=== PATIENT | female | born 1980 | race Caucasian/White ===

== ENCOUNTER 2016-03-19 07:51 | Emergency (ER) | payer MEDICAID ==
[~2016-03-19] VITALS: Ht 167.6 cm; Wt 60.0 kg
[~2016-03-19 07:51] MED LIST: KLOR20TA6 PO; NAPR500 PO
[2016-03-19 07:52] VITALS: BP 134/85; PULSE 116; RESP 17; TEMP 97.8; O2SAT 97
[2016-03-19] MEDS ORDERED: predniSONE 20 MG TAB PO ONE (08:15)
--- NOTE | 2016-03-19 08:15 | PD ---
HPI Chief Complaint: ENT Complaint Time Seen by Provider: 08:10 Travel History International Travel<30 days: No Contact w/Intl Traveler<30days: No Traveled to known affect area: No History of Present Illness HPI Patient is a 35-year-old female presenting with chief complaint of "I have a head cold". She states she has had nasal congestion, postnasal drip, sore throat, cough and hoarseness along with bilateral ear pain for 4 days. She has used Mucinex DM with little relief. Cough is mostly dry and worse at night. Occasional thin green sputum production when lying flat. She denies any otorrhea, globus sensation, inability to swallow or clear secretions. She denies fever, headache and myalgias. She denies chest pain, dyspnea and wheezing. She denies any abdominal pain, nausea, vomiting and diarrhea. She states she has not ate as much due to discomfort with swallowing but has been drinking fluids normally. She is a smoker and occasional ethanol drinker, denies history of asthma or COPD. PFS Past Medical History Anemia: Yes Cerebrovascular Accident: Yes (when she was 18 "mini stroke") Immunizations Current: Yes ?: Not Social History Alcohol Use: Yes (weekly) Tobacco Use: Yes (PPD) Substance Use: No Allergies-Medications (Allergen,Severity, Reaction): Uncoded Allergies: ORTHO TRI-CYCLEN (Allergy, Severe, SYNCOPE, 01/07/15) PT STATES "PASSED OUT AND HAD MINI STROKE". Reported Meds & Prescriptions Reported Meds & Active Scripts Active Magic Mouthwash Pediatric/Adult Liq (Lidocaine/Diphenhydr/Alum/Mg/Simeth) 60 Ml Susp 5-10 Ml SWISH-SPIT ACHS PRN Please makes 40 mL each: 2% viscous lidocaine, liquid diphenhydramine and Maalox liquid Tessalon Perles (Benzonatate) 100 Mg Cap 100-200 Mg PO TID PRN Prednisone 20 Mg Tab 20 Mg PO DAILY 5 Days Review of Systems Except as stated in HPI: all other systems reviewed are Neg Physical Exam Narrative GENERAL: Well-developed and well-nourished adult female in no acute distress. SKIN: Warm and dry. Good turgor without tenting. HEAD: Normocephalic and atraumatic. EYES: PERRL bilaterally, 5mm. EOMI bilaterally. No injection or icterus present. No proptosis. Lids without edema or erythema. ENT: Bilateral ear canals are non-edematous/non-erythematous without otorrhea. Bilateral TMs are dull but with intact landmarks and without distortion, perforation, air-fluid level or erythema. Nasal mucosa erythematous and edematous with clear and yellow discharge, septum intact and midline. Buccal mucosa pink and moist. On the soft and hard palate there are small aphthous ulcers and there is some erythema of the anterior tonsillar pilar's without tonsillar hypertrophy, masses, swelling, asymmetry and exudates. Uvula midline and airway patent. NECK: Supple, no meningeal signs. Trachea midline, no JVD. No cervical or facial lymphadenopathy. CARDIOVASCULAR: Regular rate and rhythm without murmurs, rubs, clicks or gallops. Radial and posterior tibial pulses 2+ bilaterally. No pedal edema. Negative bilateral Homans sign. RESPIRATORY: Clear to auscultation bilaterally with symmetrical rise and fall, no distress or use of accessory muscles. Speaks in full sentences. No stridor , tripoding or drooling. GASTROINTESTINAL: Non-tender, non-distended. Normal bowel sounds all 4 quadrants. No masses or organomegaly present. MUSCULOSKELETAL: No gait disturbances. Patient freely moving all four extremities spontaneously. Extremities without clubbing, cyanosis, or edema. No obvious deformities. NEUROLOGIC: CN II-XII grossly intact. Awake and alert. Motor grossly within normal limits. Normal speech. PSYCHIATRIC: Appropriate mood and affect; insight and judgment normal. Data Data Last Documented VS Vital Signs Date Time Temp Pulse Resp B/P Pulse Ox O2 Delivery O2 Flow Rate FiO2 03/19/16 09:08 106 97 03/19/16 08:28 19 Room Air 03/19/16 07:52 97.8 134/85 Orders Prednisone (Deltasone) (03/19/16 08:15) Influenzae A/B Antigen (03/19/16 08:08) Group A Rapid Strep Screen (03/19/16 08:08) Strep Culture (Group A) (03/19/16 08:20) MDM Medical Decision Making Medical Screen Exam Complete: Yes Emergency Medical Condition: Yes Interpretation(s) Date/Time Procedure Status Source Growth 03/19/16 08:20 Group A Streptococcus Screen (FLO) - Final Complete Throat 03/19/16 08:20 Influenza Types A,B Antigen (FLO) - Final Complete Nasal Washing NEGATIVE FOR FLU A AND B ANTIGEN.... 03/19/16 08:20 Group A Streptococcus Screen Received Throat Pending Differential Diagnosis sinusitis vs pharyngitis vs viral syndrome vs bronchitis vs laryngitis versus pneumonia unlikely Narrative Course Patient is a afebrile and nontoxic 35-year-old female presenting with ENT symptoms any cough for 4 days. She has nasal mucosal erythema and edema with large amounts of drainage. She is mostly dry cough that is worse when lying flat and occasionally has small amount of sputum production that is likely from postnasal drip. Some dullness of the TMs but no overt infection. Some aphthous ulcers present on the soft and hard palate. Lungs clear to auscultation, no increased work of breathing and oxygen saturation on room air is 97%. Patient was given prednisone 40 mg and ordered rapid flu and strep testing which was negative. Patient expressed relief with the prednisone. Patient is mildly tachycardic in triage however on my exam she is not tachycardic and there are no obvious signs of dehydration/fluid depletion. Patient frequent has coughing episodes and this does seem to raise her heart rate. Repeat heart rate 106. As she is afebrile, nontoxic and does not appear dehydrated no additional workup is indicated at this time. Patient will be given perception for steroid, Tessalon Perles and Magic mouthwash for sinusitis , viral pharyngitis and laryngitis.See discharge paperwork for further instructions. The plan was discussed with the patient who acknowledged their understanding and agreement. Reinforced the follow-up with primary care is critically important. Patient instructed on emergent conditions that should prompt return to ED. Diagnosis Primary Impression: Laryngitis Additional Impressions: Sinusitis Qualified Code: J01.90 - Acute non-recurrent sinusitis, unspecified location Aphthous stomatitis Patient Instructions: Canker Sores (ED), General Instructions, Laryngitis (ED) , Rhinosinusitis (ED) Additional Instructions: Take medication as prescribed OTC Mucinex, cough suppressants, and decongestants as needed OTC Tylenol or Ibuprofen for fever and discomfort Drink lots of fluid to help clear mucous/drainage and stay hydrated Follow up with PCP in 2 days Return to the ED for any acute worsening of symptoms Med/Other Pt SpecificInfo: Prescription(s) given Scripts Mhlyllyqjdywhwa-Woelhuibe-Uxb-Alum-Simeth Liq (Magic Mouthwash Pediatric/Adult Liq)60 Ml Susp5-10 Ml SWISH-SPIT ACHS PRN (SORE THROAT) #120 ML Ref 0 Please makes 40 mL each: 2% viscous lidocaine, liquid diphenhydramine and Maalox liquid Prov:Katia Butt MD 03/19/16 Benzonatate (Tessalon Perles)100 Mg [id number] Mg PO TID PRN (COUGH) #20 CAP Prov:Katia Butt MD 03/19/16 Prednisone 20 Mg Tab20 Mg PO DAILY 5 Days Prov:Katia Butt MD 03/19/16 Disposition: 01 DISCHARGE HOME Condition: Stable Duane Roth III Mar 19, 2016 08:15
[2016-03-19 08:28] VITALS: PULSE 109; RESP 19; O2SAT 97
[2016-03-19 09:08] VITALS: PULSE 106; O2SAT 97
[2016-03-19] MEDS ORDERED: PRED20 PO ×2 (09:15→09:16)
[2016-03-19] MEDS ORDERED: BENZ100 PO ×2 (09:15→09:16)
[2016-03-19] MEDS ORDERED: MAGICPED SWISH-SPIT ×2 (09:15→09:16)
== END 2016-03-19 09:43 | disposition home or self-care (01) ==
LOC: NEPB 07:51
DX: J04.0 Acute laryngitis (principal); J01.90 Acute sinusitis, unspecified; K12.0 Recurrent oral aphthae; F17.210 Nicotine dependence, cigarettes, uncomplicated
CPT/HCPCS: 87081; 87804; 87880; 99283; J7512

== ENCOUNTER 2016-06-21 08:16 | Inpatient (IN) | payer MEDICAID ==
[2016-06-21] VITALS (8 sets, daily range): BP systolic 88–118; BP diastolic 55–67; PULSE 109–121; RESP 14–18; TEMP 98.2–99; O2SAT 93–98
[~2016-06-21] VITALS: Ht 167.6 cm; Wt 65.0 kg
[~2016-06-21 08:16] MED LIST changes: +BENZ100 PO; -KLOR20TA6 PO; +MAGICPED SWISH-SPIT; -NAPR500 PO; +PRED20 PO
[2016-06-21] MEDS ORDERED: SODIUM CHLORIDE 0.9% FLUSH 10 ML FLUSH IV FLUSH PRN ×2 (09:15→11:15)
[2016-06-21 09:40] LABS: HEMATOCRIT 28.7 % (35.0-46.0); HEMO FLAGS AUTO DIFF; MEAN CELL VOLUME 146.8 FL (80.0-100.0); MEAN CORPUSCULAR HEMOGLOBIN 51.3 PG (27.0-34.0); MEAN CORPUSCULAR HGB CONC 34.9 % (32.0-36.0); PLATELET COUNT 291 TH/MM3 (150-450); RED BLOOD COUNT 1.95 MIL/MM3 (4.00-5.30); RED CELL DISTRIBUTION WIDTH 24.2 % (11.6-17.2)
[2016-06-21 09:49] LABS: BACTERIA, URINE MANY /hpf; BLOOD, URINE TRACE (NEG); COMMENT (UR) CULTURE INDICATED; CULTURE IF INDICATED CULTURE INDICATED; GLUCOSE,URINE NEG (NEG); KETONE, URINE TRACE mg/dL (NEG); MUCUS URINE MANY /lpf (OCC); SQUAMOUS EPITHELIAL CELL URINE 57 /hpf (0-5)
[2016-06-21 09:50] LABS: NITRITE,URINE POS (NEG); URINE COLOR DARK-BROWN (YELLW/STRAW)
[2016-06-21 09:54] LABS: APTT (PATIENT) 29.2 SEC (24.3-30.1); INTERNATIONAL NORMALIZED RATIO 1.7 RATIO; PROTHROMBIN TIME - PATIENT 19.4 SEC (9.8-11.6)
[2016-06-21 09:57] LABS: ANION GAP 11 MEQ/L (5-15); AST (GOT) 372 U/L (15-37); BICARBONATE 30.9 MEQ/L (21.0-32.0); BLOOD UREA NITROGEN 6 MG/DL (7-18); CHLORIDE 91 MEQ/L (98-107); GLOMERULAR FILTRATION RATE 189 ML/MIN (>89); POTASSIUM 3.1 MEQ/L (3.5-5.1); SODIUM (NA) 133 MEQ/L (136-145)
--- NOTE | 2016-06-21 09:57 | PD ---
HPI Chief Complaint: Abdominal Pain Time Seen by Provider: 08:31 Travel History International Travel<30 days: No Contact w/Intl Traveler<30days: No History of Present Illness HPI This is a 35-year-old female says for 2 weeks she has had increasing abdominal swelling, discomfort in the upper abdomen, constant, moderate severity associated with generalized fatigue. She denies any fevers, chills, vomiting, or dysuria. She has had darker urine. She also has had significant swelling in her legs and some yellowing of her eyes. She denies any history of IV drug use or recent travel. She does say she has a history of heavy alcohol use. She says for 4 years she used to drink sometimes 10 shots a night on a daily basis. Currently she binge drinks several times a week. She lives in a hotel with her family. PFS Past Medical History Anemia: Yes Cerebrovascular Accident: Yes (when she was 18 "mini stroke") Immunizations Current: Yes Tetanus Vaccination: < 5 Years Influenza Vaccination: No ?: Unknown Past Surgical History Surgical History: No Previous Surgery Abdominal Surgery: No Social History Alcohol Use: Yes (occasional) Tobacco Use: Yes Substance Use: No Allergies-Medications (Allergen,Severity, Reaction): Uncoded Allergies: ORTHO TRI-CYCLEN (Allergy, Severe, SYNCOPE, 01/07/15) PT STATES "PASSED OUT AND HAD MINI STROKE". Reported Meds & Prescriptions Reported Meds & Active Scripts Active No Active Prescriptions or Reported Medications Review of Systems Except as stated in HPI: all other systems reviewed are Neg Physical Exam Narrative GENERAL: Ill-appearing SKIN: Jaundice with spider telangiectasia along the chest wall HEAD: Atraumatic. Normocephalic. EYES: Pupils equal and round. No injection or drainage. ENT: Moist mucous membranes NECK: Trachea midline. CARDIOVASCULAR: Regular rate and rhythm. No murmur appreciated. RESPIRATORY: Clear to auscultation. Breath sounds equal bilaterally. GASTROINTESTINAL: Abdomen soft, non-tender, nondistended. MUSCULOSKELETAL: No obvious deformities. 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 No obvious cranial nerve deficits. No dysarthria or aphasia. No upper or lower extremity drift. No upper extremity ataxia. Visual pritchard intact. PSYCHIATRIC: Appropriate mood and affect; insight and judgment normal. Data Data Last Documented VS Vital Signs Date Time Temp Pulse Resp B/P Pulse Ox O2 Delivery O2 Flow Rate FiO2 06/21/16 10:30 110 14 112/62 98 Nasal Cannula 2 06/21/16 08:41 99.0 Orders Complete Blood Count With Diff (06/21/16 09:01) Comprehensive Metabolic Panel (06/21/16 09:) Lipase (06/21/16 09:01) Lactic Acid (06/21/16 09:01) Urinalysis - C+S If Indicated (06/21/16 09:) Us Abdomen Gallbladder (06/21/16 ) Iv Access Insert/Monitor (06/21/16 09:) Ecg Monitoring (06/21/16 09:) Oximetry (06/21/16 09:01) Sodium Chloride 0.9% Flush (Ns Flush) (06/21/16 09:15) Electrocardiogram (06/21/16 09:01) Ed Urine Pregnancytest Poc (06/21/16 09:01) Bilirubin Components (06/21/16 09:01) Prothrombin Time / Inr (Pt) (06/21/16 09:01) Act Partial Throm Time (Ptt) (06/21/16 09:01) Tylenol (Acetaminophen) (06/21/16 09:01) Urine Culture (06/21/16 09:00) Ceftriaxone Inj (Rocephin Inj) (06/21/16 10:45) Admit Order (Ed Use Only) (06/21/16 10:50) Labs Laboratory Tests Test 06/21/16 09:00 White Blood Count 11.0 TH/MM3 Red Blood Count 1.95 MIL/MM3 Hemoglobin 10.0 GM/DL Hematocrit 28.7 % Mean Corpuscular Volume 146.8 FL Mean Corpuscular Hemoglobin 51.3 PG Mean Corpuscular Hemoglobin 34.9 % Concent Red Cell Distribution Width 24.2 % Platelet Count 291 TH/MM3 Mean Platelet Volume 8.7 FL Neutrophils (%) (Auto) % Lymphocytes (%) (Auto) % Monocytes (%) (Auto) % Eosinophils (%) (Auto) % Basophils (%) (Auto) % Neutrophils # (Auto) TH/MM3 Lymphocytes # (Auto) TH/MM3 Monocytes # (Auto) TH/MM3 Eosinophils # (Auto) TH/MM3 Basophils # (Auto) TH/MM3 CBC Comment AUTO DIFF Differential Total Cells 100 Counted Neutrophils % (Manual) 72 % Band Neutrophils % 5 % Lymphocytes % 11 % Monocytes % 10 % Eosinophils % 2 % Neutrophils # (Manual) 8.5 TH/MM3 Differential Comment FINAL DIFF MANUAL Platelet Estimate NORMAL Target Cells 2+ Acanthocytes OCC Keratocytes OCC Prothrombin Time 19.4 SEC Prothromb Time International 1.7 RATIO Ratio Activated Partial 29.2 SEC Thromboplast Time Urine Color DARK-BROWN Urine Turbidity CLOUDY Urine pH 6.0 Urine Specific Conrad 1.025 Urine Protein 30 mg/dL Urine Glucose (UA) NEG mg/dL Urine Ketones TRACE mg/dL Urine Occult Blood TRACE Urine Nitrite POS Urine Bilirubin LARGE Urine Urobilinogen GREATER THAN 12.0 MG/DL Urine Leukocyte Esterase LARGE Urine RBC 8 /hpf Urine WBC 106 /hpf Urine WBC Clumps MANY Urine Squamous Epithelial 57 /hpf Cells Urine Amorphous Sediment OCC Urine Bacteria MANY /hpf Urine Mucus MANY /lpf Microscopic Urinalysis Comment CULTURE INDICATED Sodium Level 133 MEQ/L Potassium Level 3.1 MEQ/L Chloride Level 91 MEQ/L Carbon Dioxide Level 30.9 MEQ/L Anion Gap 11 MEQ/L Blood Urea Nitrogen 6 MG/DL Creatinine 0.39 MG/DL Estimat Glomerular Filtration 189 ML/MIN Rate Random Glucose 97 MG/DL Lactic Acid Level 2.1 mmol/L Calcium Level 8.1 MG/DL Total Bilirubin 13.4 MG/DL Direct Bilirubin 10.1 MG/DL Indirect Bilirubin 3.3 MG/DL Aspartate Amino Transf 372 U/L (AST/SGOT) Alanine Aminotransferase 137 U/L (ALT/SGPT) Alkaline Phosphatase 162 U/L Total Protein 6.1 GM/DL Albumin 2.4 GM/DL Lipase 229 U/L Acetaminophen Level LESS THAN 2.0 MCG/ML MDM Medical Decision Making Medical Screen Exam Complete: Yes Emergency Medical Condition: Yes Interpretation(s) Afebrile, tachycardic, mild hypertension Marked macrocytic anemia Hyponatremia, hypokalemia Total bilirubin is 13 and direct bilirubin is 10 Transaminitis with elevated alkaline phosphatase Lipase is normal Acetaminophen is negative Urinalysis is quite contaminated with possible infection Differential Diagnosis Alcoholic liver disease, hepatitis, acetaminophen toxicity, congestive heart failure, cholangitis, choledocholithiasis Narrative Course This is a 35-year-old female who presents to the emergency department with abdominal distention, jaundice and some upper abdominal discomfort. She does have a history of heavy alcohol use in the past. She was placed on a monitor and an IV was established. Labs are consistent with cirrhosis with an elevated direct bilirubin and an INR of 1.7. She has a profound macrocytic anemia which also suggests she may be an alcoholic. An ultrasound of the right upper quadrant demonstrates possible cholecystitis but I think this is in the setting of ascites and her clinical history is not consistent with cholecystitis. Patient will be admitted for GI consultation and further evaluation. Diagnosis Primary Impression: Liver failure Qualified Code: K72.00 - Acute liver failure without hepatic coma Admitting Information Admitting Physician Requests: Admit Scripts No Active Prescriptions or Reported Meds Katia Butt MD Jun 21, 2016 09:56
[2016-06-21 10:00] LABS: ALKALINE PHOSPHATASE 162 U/L (45-117); ALT (GPT) 137 U/L (10-53); INDIRECT BILIRUBIN 3.3 MG/DL (0.0-0.8); TOTAL BILIRUBIN ADULT 13.4 MG/DL (0.2-1.0)
[2016-06-21 10:24] LABS: ACANTHOCYTES OCC (NORMAL); BANDS 5 % (0-6); EOSINOPHILS 2 % (0-4); KERATOCYTES OCC (NORMAL); NEUTROPHIL # MANUAL DIFF 8.5 TH/MM3 (1.8-7.7); POLYS (SEG NEUTROPHILS) 72 % (16-70); TARGET CELLS 2+ (NORMAL); WBC DIFF SAMPLE 100
[2016-06-21 10:25] LABS: PLATELET ESTIMATE SMEAR NORMAL (NORMAL); SCAN/DIFF FINAL DIFF MANUAL
--- NOTE | 2016-06-21 10:31 | RADRPT ---
EXAM DATE/TIME: 06/21/2016 09:27 [facility] COMPARISON: No previous studies available for comparison. INDICATIONS : Right upper quadrant pain. MEDICAL HISTORY : CVA. Anemia. SURGICAL HISTORY : None. ENCOUNTER: Initial ACUITY: 2 weeks PAIN SCORE: 8/10 LOCATION: Right upper quadrant MEASUREMENTS: LIVER: 24.7 cm length COMMON DUCT: 4 mm RIGHT KIDNEY: 10.9 x 6.0 x 5.1 cm FINDINGS: The liver is slightly echogenic which maybe due to fatty infiltration and or hepatocellular dysfunction. the gallbladder is distended with sludge within it without definite stones, however the re is thickening of the gallbladder wall measuring almost 1.4 cm with pericholecystic fluid. CONCLUSION: 1. No definite gallstones, however tiny gallstones may be present with sludge in the gallbladder and findings suggestive of cholecystitis. 2. The liver is slightly echogenic which maybe due to fatty infiltration and or hepatocellular dysfun ctionMary Reynolds MD on June 21, 2016 at 10:24 Board Certified Radiologist. This report was verified electronically.
[2016-06-21 10:40] LABS: ACETAMINOPHEN LESS THAN 2.0 MCG/ML (10.0-30.0)
[2016-06-21] MEDS ORDERED: cefTRIAXone INJ 1,000 MG in SODIUM CHLORIDE 0.9% INJ 100 ML IV ONE (10:45)
--- NOTE | 2016-06-21 10:54 | HHI.HP ---
HPI Service Family Medicine Primary Care Physician Unknown Admission Diagnosis liver failure Diagnoses: International Travel<30 Days: No Contact w/Intl Traveler<30days: No History of Present Illness Patient is a 35 year old female with no significant PMH presents to ED after two weeks of progressively worsening abdominal and LE swelling. The swelling began in bilateral feet two weeks, ago, then stomach swelling notable a day or so later. Over time it began to look like she was and that her legs were swelling too. The symptoms have all been bilateral. Now, she is unable to move without difficulty and it is difficult to sleep due to discomfort. Of note, patient has a history of alcoholism, stating she has not regularly drink for years but has been recently drinking up to 4 shots of vodka per day, last reported use Sunday. She states in the past she has been able to consume a whole bottle of vodka a day. She took an OTC water pill three times about a week ago, didn't do anything. No recent illnesses. She endorses shortness of breath with bending over, walking (20-30 feet). Endorses palpitations once this morning. No chest pain, headache, nausea or vomiting, abdominal pain (just tightness). No voiding difficulty. No blood noted in the stool or urine, no melena. She gets full quickly over the last two weeks. Never had a GI workup. PCP: None. No periods, had Mirena taken out 3 years ago, but not on anything now, LMP 6 months ago. Not sexually active now, last activity 3 months ago, 1 partner male in last 6 months. (Marci Amaral MD R1) Review of Systems Constitutional: COMPLAINS OF: Weight gain, DENIES: Fatigue, Fever, Chills, Dizziness, Change in appetite Endocrine: COMPLAINS OF: Abnorml menstrual pattern (secondary amenorrhea ) Eyes: DENIES: Blurred vision, Diplopia, Eye inflammation Respiratory: COMPLAINS OF: Cough, Shortness of breath, DENIES: Wheezing, Sputum production Cardiovascular: COMPLAINS OF: Palpitations, Lower Extremity Edema, DENIES: Chest pain Gastrointestinal: COMPLAINS OF: Abdominal pain, DENIES: Black stools, Bloody stools, Constipation, Diarrhea, Nausea, Vomiting, Difficulty Swallowing Genitourinary: DENIES: Urinary frequency, Urgency, Hematuria, Dysuria, Nocturia Musculoskeletal: DENIES: Joint pain, Muscle aches, Stiffness, Back pain, Neck pain Integumentary: COMPLAINS OF: Rash, DENIES: Pruritus Hematologic/lymphatic: DENIES: Bruising, Lymphadenopathy Neurologic: DENIES: Headache, Localized weakness, Paresthesias, Seizures Psychiatric: DENIES: Anxiety, Depression (Marci Amaral MD R1) Past Family Social History Past Medical History None Past Surgical History None Reported Medications Reported Meds & Active Scripts Active No Active Prescriptions or Reported Medications (Marci Amaral MD R1) Allergies: Uncoded Allergies: ORTHO TRI-CYCLEN (Allergy, Severe, SYNCOPE, 01/07/15) PT STATES "PASSED OUT AND HAD MINI STROKE". Family History Father: lung cancer 67 years ago, smoker Mother: brain hemorrhage Grandfather: diabetes Social History Smoke: 1ppd for 21 years Alcohol: occasionally, use to drink heavy, last drink Sunday (vodka 4 shots) Illicits: denies illicits/IVDU ever Lives with mom and son (Marci Amaral MD R1) Physical Exam Vital Signs Vital Signs Date Time Temp Pulse Resp B/P Pulse Ox O2 Delivery O2 Flow Rate FiO2 06/21/16 10:11 113 14 111/56 93 Nasal Cannula 2 06/21/16 08:41 99.0 116 14 114/59 96 Room Air 06/21/16 08:34 16 06/21/16 08:19 98.2 121 17 118/67 96 Physical Exam GENERAL: Patient is a well-nourished female who appears older than stated age, noticeably jaundiced but in no apparent distress. SKIN: Warm and dry. Skin is notable for an mini spider angiomata across the upper chest and arms. HEAD: Atraumatic. Normocephalic. EYES: PERRLA. Prominent scleral icterus. No injection or drainage. ENT: No nasal bleeding or discharge. Mucous membranes pink and moist. Normal dentition. NECK: Trachea midline. No JVD. CARDIOVASCULAR: Regular rate and rhythm. No murmurs. RESPIRATORY: No accessory muscle use. Clear to auscultation. Breath sounds equal bilaterally. GASTROINTESTINAL: Abdomen is notably distended, to approximately the size of an 7-month gestation. It is soft and tender to deep palpation across the entire upper half. Hepatic and splenic margins not palpable. Positive fluid wave. MUSCULOSKELETAL: Extremities without clubbing, cyanosis, or edema. No obvious deformities. 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 Motor grossly within normal limits. Five out of 5 muscle strength in the arms and legs. Normal speech. No asterixis. PSYCHIATRIC: Appropriate mood and affect; insight and judgment normal. Laboratory Laboratory Tests Test 06/21/16 09:00 White Blood Count 11.0 Red Blood Count 1.95 Hemoglobin 10.0 Hematocrit 28.7 Mean Corpuscular Volume 146.8 Mean Corpuscular Hemoglobin 51.3 Mean Corpuscular Hemoglobin 34.9 Concent Red Cell Distribution Width 24.2 Platelet Count 291 Mean Platelet Volume 8.7 Neutrophils (%) (Auto) Lymphocytes (%) (Auto) Monocytes (%) (Auto) Eosinophils (%) (Auto) Basophils (%) (Auto) Neutrophils # (Auto) Lymphocytes # (Auto) Monocytes # (Auto) Eosinophils # (Auto) Basophils # (Auto) CBC Comment AUTO DIFF Differential Total Cells 100 Counted Neutrophils % (Manual) 72 Band Neutrophils % 5 Lymphocytes % 11 Monocytes % 10 Eosinophils % 2 Neutrophils # (Manual) 8.5 Differential Comment FINAL DIFF MANUAL Platelet Estimate NORMAL Target Cells 2+ Acanthocytes OCC Keratocytes OCC Prothrombin Time 19.4 Prothromb Time International 1.7 Ratio Activated Partial 29.2 Thromboplast Time Urine Color DARK-BROWN Urine Turbidity CLOUDY Urine pH 6.0 Urine Specific [place] 1.025 Urine Protein 30 Urine Glucose (UA) NEG Urine Ketones TRACE Urine Occult Blood TRACE Urine Nitrite POS Urine Bilirubin LARGE Urine Urobilinogen GREATER THAN 12.0 Urine Leukocyte Esterase LARGE Urine RBC 8 Urine WBC 106 Urine WBC Clumps MANY Urine Squamous Epithelial 57 Cells Urine Amorphous Sediment OCC Urine Bacteria MANY Urine Mucus MANY Microscopic Urinalysis Comment CULTURE INDICATED Sodium Level 133 Potassium Level 3.1 Chloride Level 91 Carbon Dioxide Level 30.9 Anion Gap 11 Blood Urea Nitrogen 6 Creatinine 0.39 Estimat Glomerular Filtration 189 Rate Random Glucose 97 Lactic Acid Level 2.1 Calcium Level 8.1 Total Bilirubin 13.4 Direct Bilirubin 10.1 Indirect Bilirubin 3.3 Aspartate Amino Transf 372 (AST/SGOT) Alanine Aminotransferase 137 (ALT/SGPT) Alkaline Phosphatase 162 Total Protein 6.1 Albumin 2.4 Lipase 229 Acetaminophen Level LESS THAN 2.0 Date/Time Procedure Status Source Growth 06/21/16 09:00 Urine Culture Worksheet Urine Clean Catch Pending (Marci Amaral MD R1) Result Diagram: 06/21/16 0900 06/21/16 0900 Imaging Last Impressions Gall Bladder Ultrasound 06/21/16 0000 Signed Impressions: Service Date/Time: Tuesday, June 21, 2016 09:27 - CONCLUSION: 1. No definite gallstones, however tiny gallstones may be present with sludge in the gallbladder and findings suggestive of cholecystitis. 2. The liver is slightly echogenic which maybe due to fatty infiltration and or hepatocellular dysfunction. Dani Reynolds MD (Marci Amaral MD R1) Assessment and Plan Assessment and Plan 35 year old female with history of alcohol abuse presenting with elevated liver enzymes, severe hyperbilirubinemia, coagulopathy and abdominal swelling concerning for alcoholic cirrhosis Code Status Full Code Discussed Condition With Seen and discussed with Dr. Pineda (Marci Amaral MD R1) Attending Attestation Patient seen and examined. Case reviewed and discussed with the resident team. Agree with plan of care as discussed with me and documented in the resident note. pt seen on admission in ED (Mary Wesley MD) Problem List: (1) Liver failure Status: Acute Plan: Patient with no significant PMH presents with transaminitis, hyperbilirubinemia, jaundice, and abdominal fullness concerning for alcoholic cirrhosis given history. Meld score 24, confers 19.6% 3 month mortality Maddrey score 47 Plan: Lasix 40mg BID GI consult to work-up possible alcoholic cirrhosis Give potassium 40mg x 1, monitor BMP Hemoccult CIWA Lipase wnl Hepatitis panel pending Trend CMP Vitamins Etoh level wnl US liver - showing gallstones, otherwise unremarkable Pain meds - hold NSAIDs, Tylenol given LFTs, give Dilaudid PRN (2) Alcohol abuse Status: Acute Plan: History of withdrawal characterized by autonomic symptoms, never has had seizures or hospitalization CIWA protocol Vitamins (3) Fluids/Electrolytes/Nutrition/Prophylaxis Status: Acute Plan: Fluids: Hold IVF given ascites, fluid restrict to 1.5 L daily Electrolytes: Monitor and replete as needed Nutrition: Clear liquid for now, fluid restrict DVT Prophylaxis: bilateral SCDs GI Prophylaxis: PPI (Marci Amaral MD R1) Physician Certification 2 Midnight Certification Type: Admission for Inpatient Services Order for Inpatient Services The services are ordered in accordance with Medicare regulations or non- Medicare payer requirements, as applicable. In the case of services not specified as inpatient-only, they are appropriately provided as inpatient services in accordance with the 2-midnight benchmark. Estimated LOS (days): 3 days is the estimated time the patient will need to remain in the hospital, assuming treatment plan goals are met and no additional complications. Post-Hospital Plan: Home (Marci Amaral MD R1) Problem Qualifiers (1) Liver failure: Qualified Code: K72.00 - Acute liver failure without hepatic coma Marci Amaral MD R1 Jun 21, 2016 10:53 Mary Wesley MD Jun 22, 2016 12:31
[2016-06-21] MEDS ORDERED: D5-1/2 NS + KCL 20 MEQ INJ 1,000 ML IV SCH (11:01)
[2016-06-21] MEDS ORDERED: TEMAZEPAM 15 MG CAP PO PRN (11:15)
[2016-06-21] MEDS ORDERED: DOCUSATE SODIUM 50 MG/SENNA 8.6 MG TAB PO PRN (11:15)
[2016-06-21] MEDS ORDERED: HYDROmorphone HCL PF 1 MG/ML VIAL IV PRN (11:15)
[2016-06-21] MEDS ORDERED: ONDANSETRON HCL 4 MG/2 ML VIAL IV PRN (11:15)
[2016-06-21] MEDS ORDERED: PANTOPRAZOLE SOD 40 MG DELAYED RELEASE TAB PO SCH (11:15)
[2016-06-21] MEDS ORDERED: FUROSEMIDE 40 MG/4 ML VIAL IV PUSH ONE (11:45)
[2016-06-21] MEDS ORDERED: LORazepam 2 MG/ML VIAL IV PUSH PRN ×4 (11:45)
[2016-06-21] MEDS ORDERED: LORazepam 1 MG TAB PO PRN (11:45)
[2016-06-21] MEDS ORDERED: LORazepam 2 MG TAB PO PRN (11:45)
[2016-06-21] MEDS ORDERED: FLUMAZENIL 0.5 MG/5 ML VIAL IV PUSH PRN (11:45)
[2016-06-21] MEDS: FOLIC ACID 1 MG TAB PO SCH (12:19)
[2016-06-21] MEDS: MULTIVITAMIN TAB PO SCH (12:19)
--- NOTE | 2016-06-21 12:36 | PD.CONS ---
HPI History of Present Illness This is a 35 year old who came to the ER for evaluation of swelling in her abdomen and bilateral lower extremities. This actually started about two weeks ago and has progressively been getting worse. She also started having abdominal pain around the same time, with a pressure-like pain in her abdomen. She states that it hurts all over, but is more pronounced in her left upper quadrant. This is constant without any radiation. She denies any nausea, vomiting, fever, chills, constipation, diarrhea, melena, or hematochezia. She does have GERD and will have heartburn or reflux if she eats anything acidic like tomatoes or orange juice without taking an omeprazole, she will have severe symptoms. She only takes this when she eats something acidic. She did not notice that she was jaundiced until she came to the ER today and someone else mentioned. She does note that her urine has been dark for several days now. She was a heavy drinker, drinking a "big bottle of liquor every 3-4 days" but states she cut this back < than one year ago and now drinks 4 shots at a time, a few times a week. She last had alcohol on Sunday, when she had 4 shots. She denies any history of liver disease or hepatitis. She has several tattoo's, but all over a year ago at tattoo parlors. She denies any new sexual partners. She does eat quite a bit of shellfish. There is no family hx of liver disease. (Isatu Hardin) PFSH Past Medical History GERD Past Surgical History No surgeries (Isatu Hardin) Uncoded Allergies: ORTHO TRI-CYCLEN (Allergy, Severe, SYNCOPE, 01/07/15) PT STATES "PASSED OUT AND HAD MINI STROKE". Medications Allergies Uncoded Allergies Type Severity Reaction Last Updated Verified ORTHO TRI-CYCLEN Allergy Severe SYNCOPE 01/07/15 Active Scripts Medications Dose Route/Sig Days Date Category No Active Prescriptions or Reported Medications Rx Family History No family hx of liver disease Father from Lung Cancer Social History Smokes 1-1.5 PPD States she was a heavy drinker, drinking a "big bottle of liquor every 3-4 days " but states she cut this back < than one year ago and now drinks 4 shots at a time, a few times a week. She last had alcohol on Sunday, when she had 4 shots. (Isatu Hardin) Review of Systems Constitutional: COMPLAINS OF: Weight loss, DENIES: Fever, Chills, Change in appetite Respiratory: DENIES: Cough Cardiovascular: COMPLAINS OF: Lower Extremity Edema, DENIES: Chest pain Gastrointestinal: COMPLAINS OF: Abdominal pain, Swelling of Abdomen, Heartburn , DENIES: Black stools, Bloody stools, Constipation, Diarrhea, Nausea, Vomiting Musculoskeletal: DENIES: Back pain Integumentary: COMPLAINS OF: Jaundice Hematologic/lymphatic: DENIES: Bruising Neurologic: DENIES: Headache Psychiatric: DENIES: Confusion ROS dark urine (Isatu Hardin) GI Exam Vitals I&O Vital Signs Date Time Temp Pulse Resp B/P Pulse Ox O2 Delivery O2 Flow Rate FiO2 06/21/16 10:11 113 14 111/56 93 Nasal Cannula 2 06/21/16 08:41 99.0 116 14 114/59 96 Room Air 06/21/16 08:34 16 06/21/16 08:19 98.2 121 17 118/67 96 Imaging Last Impressions Gall Bladder Ultrasound 06/21/16 0000 Signed Impressions: Service Date/Time: Tuesday, June 21, 2016 09:27 - CONCLUSION: 1. No definite gallstones, however tiny gallstones may be present with sludge in the gallbladder and findings suggestive of cholecystitis. 2. The liver is slightly echogenic which maybe due to fatty infiltration and or hepatocellular dysfunction. Dani Reynolds MD Laboratory Test 06/21/16 09:00 White Blood Count 11.0 TH/MM3 Red Blood Count 1.95 MIL/MM3 Hemoglobin 10.0 GM/DL Hematocrit 28.7 % Mean Corpuscular Volume 146.8 FL Mean Corpuscular Hemoglobin 51.3 PG Mean Corpuscular Hemoglobin 34.9 % Concent Red Cell Distribution Width 24.2 % Platelet Count 291 TH/MM3 Mean Platelet Volume 8.7 FL Neutrophils (%) (Auto) % Lymphocytes (%) (Auto) % Monocytes (%) (Auto) % Eosinophils (%) (Auto) % Basophils (%) (Auto) % Neutrophils # (Auto) TH/MM3 Lymphocytes # (Auto) TH/MM3 Monocytes # (Auto) TH/MM3 Eosinophils # (Auto) TH/MM3 Basophils # (Auto) TH/MM3 CBC Comment AUTO DIFF Differential Total Cells 100 Counted Neutrophils % (Manual) 72 % Band Neutrophils % 5 % Lymphocytes % 11 % Monocytes % 10 % Eosinophils % 2 % Neutrophils # (Manual) 8.5 TH/MM3 Differential Comment FINAL DIFF MANUAL Platelet Estimate NORMAL Target Cells 2+ Acanthocytes OCC Keratocytes OCC Prothrombin Time 19.4 SEC Prothromb Time International 1.7 RATIO Ratio Activated Partial 29.2 SEC Thromboplast Time Urine Color DARK-BROWN Urine Turbidity CLOUDY Urine pH 6.0 Urine Specific [place] 1.025 Urine Protein 30 mg/dL Urine Glucose (UA) NEG mg/dL Urine Ketones TRACE mg/dL Urine Occult Blood TRACE Urine Nitrite POS Urine Bilirubin LARGE Urine Urobilinogen GREATER THAN 12.0 MG/DL Urine Leukocyte Esterase LARGE Urine RBC 8 /hpf Urine WBC 106 /hpf Urine WBC Clumps MANY Urine Squamous Epithelial 57 /hpf Cells Urine Amorphous Sediment OCC Urine Bacteria MANY /hpf Urine Mucus MANY /lpf Microscopic Urinalysis Comment CULTURE INDICATED Sodium Level 133 MEQ/L Potassium Level 3.1 MEQ/L Chloride Level 91 MEQ/L Carbon Dioxide Level 30.9 MEQ/L Anion Gap 11 MEQ/L Blood Urea Nitrogen 6 MG/DL Creatinine 0.39 MG/DL Estimat Glomerular Filtration 189 ML/MIN Rate Random Glucose 97 MG/DL Lactic Acid Level 2.1 mmol/L Calcium Level 8.1 MG/DL Total Bilirubin 13.4 MG/DL Direct Bilirubin 10.1 MG/DL Indirect Bilirubin 3.3 MG/DL Aspartate Amino Transf 372 U/L (AST/SGOT) Alanine Aminotransferase 137 U/L (ALT/SGPT) Alkaline Phosphatase 162 U/L Total Protein 6.1 GM/DL Albumin 2.4 GM/DL Lipase 229 U/L Acetaminophen Level LESS THAN 2.0 MCG/ML Date/Time Procedure Status Source Growth 06/21/16 09:00 Urine Culture Worksheet Urine Clean Catch Pending Physical Examination HEENT: Normocephalic; atraumatic; + jaundice. CHEST: CTA CARDIAC: Regular, tachycardia ABDOMEN: Soft, nondistended, epigastric tenderness, hepatosplenomegaly; bowel sounds are present in all four quadrants. Ascites EXTREMITIES: BLE edema. SKIN: + Jaundice ORE GRADER: No focal deficits; alert and oriented times three. (Isatu Hardin) Assessment and Plan Plan ASSESSMENT: - Acute hepatitis/Elevated LFTs, likely alcoholic hepatitis. No hx of known liver disease, hepatitis in self or family members. She does have a long hx of ETOH abuse, stating that she was a heavy drinker, drinking a "big bottle of liquor every 3-4 days" but states she cut this back < than one year ago and now drinks 4 shots at a time, a few times a week. She last had alcohol on Sunday, when she had 4 shots. Gall Bladder Ultrasound (06/21/16)-----> 1. No definite gallstones, however tiny gallstones may be present with sludge in the gallbladder and findings suggestive of cholecystitis. 2. The liver is slightly echogenic which maybe due to fatty infiltration and or hepatocellular dysfunction. She has several tattoo's, but all over a year ago at tattoo parlors. She denies any new sexual partners. She does eat quite a bit of shellfish. T. Bili 13.4, AST 372, ALT 137, Alk Phosph 162. DF is 47.440, but she appears to have UTI and therefore we will start Pentoxifylline in lieu of steroids. - Ascites. New onset, 2 weeks ago. Started taking an OTC water pills but states this did not help. SHe also has some lower extremity edema. She was given lasix and one dose of rocephin. - Anemia. Mild, HH 10.0/28.7. - Abdominal pain. Has diffuse abdominal pain, but worse in LUQ. Lipase 229. Likely related to her hepatitis and ascites. - Coagulopathy. Plt okay, but PT 19.4, INR 1.7. - Abn. UTI. Had one dose of ceftrixone. Will defer to primary - Tachycardic, elevated lactic acid. Per primary. - Hyponatremia, Hypokalemia, Hypocalcemia per primary. PLAN: - Clear liquids - Change Protonix to 40mg IV BID - Cont. Lasix - Add Pentoxifylline 400mg po q8h - Hepatitis panel - AFP level - JIAN, ASMA, AMA - Ceruloplasmin, Alpha 1 Antitrypsin - Iron saturation, Ferritin - CBC, PT/INR, CMP in am - Complete ETOH Cessation, d/w patient - Supportive care - Further recommendations to follow based on results of above - Pt seen and examined by Dr. Clay and myself and this note is written on his behalf (Isatu Hardin) Physician Comments Patient seen and examined Agree with above Continue with current supportive care Monitor labs Liver workup in progress Alcohol cessation (Guero Clay MD) Isatu Hardin Jun 21, 2016 12:36 Guero Clay MD Jun 21, 2016 23:07
[2016-06-21] MEDS: THIAMINE HCL 100 MG TAB PO SCH (12:53)
[2016-06-21] MEDS: PANTOPRAZOLE SODIUM 40 MG VIAL IV PUSH SCH ×2 (15:14→21:08)
[2016-06-21] MEDS: PENTOXIFYLLINE 400 MG CONTROLLED RELEASE TAB PO SCH ×2 (15:23→21:08)
[2016-06-21 15:52] LABS: LDH SERUM 417 U/L (84-246); TRANSFERRIN IRON PROFILE 137 MG/DL (200-360)
[2016-06-21 16:13] LABS: FERRITIN 1077 NG/ML (8-252)
[2016-06-21 17:47] LABS: BETA HCG QUANT LESS THAN 1 MIU/ML (0-5)
[2016-06-21] MEDS: FUROSEMIDE 40 MG/4 ML VIAL IV PUSH SCH (18:35)
--- NOTE | 2016-06-21 19:08 | EKG ---
Date Performed: 06/21/2016 Time Performed: 10:09:33 PTAGE: 35 years EKG: SINUS TACHYCARDIA WITH SHORT PA INTERVAL POSSIBLE LEFT ATRIAL ENLARGEMENT NONSPECIFIC ST & T-WAVE ABNORMALITY ABNORMAL RHYTHM ECG Since PREVIOUS TRACING , no significant change noted PREVIOUS TRACIN07/25/2014 16.14 DOCTOR: Carla Sy Interpretating Date/Time 06/21/2016 19:07:06
[2016-06-21] MEDS: SODIUM CHLORIDE 0.9% FLUSH 10 ML FLUSH IV FLUSH SCH (21:00)
[2016-06-22] VITALS (7 sets, daily range): BP systolic 93–102; BP diastolic 50–56; PULSE 104–110; RESP 16–18; TEMP 98.1–98.9; O2SAT 4–97
[2016-06-22] MEDS: PENTOXIFYLLINE 400 MG CONTROLLED RELEASE TAB PO SCH ×3 (05:59→20:32)
[2016-06-22 06:42] LABS: INTERNATIONAL NORMALIZED RATIO 1.8 RATIO; PROTHROMBIN TIME - PATIENT 20.2 SEC (9.8-11.6)
[2016-06-22 06:48] LABS: AUTOMATED NEUTROPHIL # 8.2 TH/MM3 (1.8-7.7); BASOPHIL % 0.4 % (0.0-2.0); EOSINOPHIL # 0.1 TH/MM3 (0-0.4); EOSINOPHIL % 0.8 % (0.0-4.0); HEMO FLAGS DIFF FINAL; LYMPH % 10.5 % (9.0-44.0); LYMPHOCYTE # 1.1 TH/MM3 (1.0-4.8); MEAN CELL VOLUME 148.4 FL (80.0-100.0); MEAN CORPUSCULAR HEMOGLOBIN 49.7 PG (27.0-34.0); MEAN CORPUSCULAR HGB CONC 33.5 % (32.0-36.0); MONO % 6.6 % (0.0-8.0); NEUT % 81.7 % (16.0-70.0); PLATELET COUNT 253 TH/MM3 (150-450); RED BLOOD COUNT 1.75 MIL/MM3 (4.00-5.30); RED CELL DISTRIBUTION WIDTH 22.3 % (11.6-17.2); WHITE BLOOD COUNT 10.1 TH/MM3 (4.0-11.0)
[2016-06-22 06:59] LABS: ALKALINE PHOSPHATASE 128 U/L (45-117); ALT (GPT) 108 U/L (10-53); ANION GAP 10 MEQ/L (5-15); AST (GOT) 269 U/L (15-37); BICARBONATE 30.9 MEQ/L (21.0-32.0); BLOOD UREA NITROGEN 7 MG/DL (7-18); CHLORIDE 95 MEQ/L (98-107); GLOMERULAR FILTRATION RATE 238 ML/MIN (>89); POTASSIUM 3.1 MEQ/L (3.5-5.1); SODIUM (NA) 136 MEQ/L (136-145); TOTAL BILIRUBIN ADULT 11.8 MG/DL (0.2-1.0)
[2016-06-22] MEDS ORDERED: POTASSIUM CHLORIDE 10 MEQ CONTROLLED RELEASE TAB PO ONE (07:15)
[2016-06-22] MEDS ORDERED: CALCIUM CARBONATE 1.25 GM (CA 500 MG) TAB PO ONE (07:15)
--- NOTE | 2016-06-22 09:34 | HHI.HP ---
[facility] Service Family Medicine Primary Care Physician Unknown Admission Diagnosis liver failure Diagnoses: (1) Liver failure Diagnosis: Principal (2) Alcohol abuse Diagnosis: Principal (3) Fluids/Electrolytes/Nutrition/Prophylaxis Diagnosis: Principal International Travel<30 Days: No Contact w/Intl Traveler<30days: No History of Present Illness Ms [place] is a 35 year old female with no significant PMH who presented to ED after two weeks of progressively worsening abdominal and LE swelling. The swelling began in bilateral feet two weeks ago, then stomach swelling notable a day or so later. Over time it began to look like she was and that her legs were swelling too. The symptoms have all been bilateral. Now, she is unable to move without difficulty and it is difficult to sleep due to discomfort. Of note, patient has a history of alcoholism, stating she has not regularly drank for years but has been recently drinking up to 4 shots of vodka per day, last reported use Sunday. She states in the past she has been able to consume a whole bottle of vodka a day. She took an OTC water pill three times about a week ago, didn't do anything. No recent illnesses. She endorses shortness of breath with bending over, walking (20-30 feet). Endorses palpitations once. No chest pain, headache, nausea or vomiting, abdominal pain (just tightness). No voiding difficulty. No blood noted in the stool or urine, no melena. She gets full quickly over the last two weeks. Never had a GI workup. PCP: None. No periods, had Mirena taken out 3 years ago, but not on anything now, LMP 6 months ago. Not sexually active now, last activity 3 months ago, 1 partner male in last 6 months. Review of Systems Other Constitutional: COMPLAINS OF: Weight gain, DENIES: Fatigue, Fever, Chills, Dizziness, Change in appetite Endocrine: COMPLAINS OF: Abnorml menstrual pattern (secondary amenorrhea ) Eyes: DENIES: Blurred vision, Diplopia, Eye inflammation Respiratory: COMPLAINS OF: Cough, Shortness of breath, DENIES: Wheezing, Sputum production Cardiovascular: COMPLAINS OF: Palpitations, Lower Extremity Edema, DENIES: Chest pain Gastrointestinal: COMPLAINS OF: Abdominal pain, DENIES: Black stools, Bloody stools, Constipation, Diarrhea, Nausea, Vomiting, Difficulty Swallowing Genitourinary: DENIES: Urinary frequency, Urgency, Hematuria, Dysuria, Nocturia Musculoskeletal: DENIES: Joint pain, Muscle aches, Stiffness, Back pain, Neck pain Integumentary: COMPLAINS OF: Rash, DENIES: Pruritus Hematologic/lymphatic: DENIES: Bruising, Lymphadenopathy Neurologic: DENIES: Headache, Localized weakness, Paresthesias, Seizures Psychiatric: DENIES: Anxiety, Depression Past Family Social History Past Medical History None Past Surgical History None Allergies: Uncoded Allergies: ORTHO TRI-CYCLEN (Allergy, Severe, SYNCOPE, 01/07/15) PT STATES "PASSED OUT AND HAD MINI STROKE". Family History Father: lung cancer 67 years ago, smoker Mother: brain hemorrhage Grandfather: diabetes Social History Smoke: 1ppd for 21 years Alcohol: occasionally, used to drink heavily, last drink Sunday (vodka 4 shots) Illicits: denies illicits/IVDU ever Lives with mom and son Physical Exam Vital Signs Vital Signs Date Time Temp Pulse Resp B/P Pulse Ox O2 Delivery O2 Flow Rate FiO2 06/22/16 08:00 98.9 104 16 96/55 4 06/22/16 04:00 98.1 107 18 102/54 90 06/22/16 04:00 98.1 107 18 102/54 90 06/22/16 00:00 98.3 110 18 94/52 93 06/21/16 20:00 Room Air 06/21/16 19:53 98.8 109 18 96/58 97 06/21/16 18:35 88/55 06/21/16 15:38 Room Air 06/21/16 14:00 98.8 111 16 104/59 94 06/21/16 13:23 99.0 105 14 103/57 98 Nasal Cannula 2 06/21/16 13:14 14 06/21/16 10:30 110 14 112/62 98 Nasal Cannula 2 06/21/16 10:11 113 14 111/56 93 Nasal Cannula 2 Physical Exam GENERAL: Patient is a well-nourished female who appears older than stated age, noticeably jaundiced in her eyes and face especially evident but in no apparent distress. SKIN: Warm and dry. Skin is notable for "mini" spider angiomata across the upper chest and arms. HEAD: Atraumatic. Normocephalic. EYES: PERRLA. Prominent scleral icterus. No injection or drainage. ENT: No nasal bleeding or discharge. Mucous membranes pink and moist. Normal dentition. NECK: Trachea midline. No JVD. CARDIOVASCULAR: Regular rate and rhythm. No murmurs. RESPIRATORY: No accessory muscle use. Clear to auscultation. Breath sounds equal bilaterally. GASTROINTESTINAL: Abdomen is notably distended slightly less so today, to approximately the size of an 7-month gestation. It is soft and tender to deep palpation across the entire upper half. Hepatic and splenic margins not palpable. Positive fluid wave. MUSCULOSKELETAL: Extremities without clubbing, cyanosis, or edema. No obvious deformities. 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 Motor grossly within normal limits. Five out of 5 muscle strength in the arms and legs. Normal speech. No asterixis. PSYCHIATRIC: Appropriate mood and affect; insight and judgment normal. Laboratory Laboratory Tests Test 06/21/16 06/21/16 06/22/16 13:12 20:25 06:10 Hepatitis A IgM Antibody NEGATIVE Hepatitis B Surface Antigen NEGATIVE Hepatitis B Core IgM Antibody NEGATIVE Hepatitis C Antibody NEGATIVE Lactic Acid Level 1.3 White Blood Count 10.1 Red Blood Count 1.75 Hemoglobin 8.7 Hematocrit 26.0 Mean Corpuscular Volume 148.4 Mean Corpuscular Hemoglobin 49.7 Mean Corpuscular Hemoglobin 33.5 Concent Red Cell Distribution Width 22.3 Platelet Count 253 Mean Platelet Volume 8.4 Neutrophils (%) (Auto) 81.7 Lymphocytes (%) (Auto) 10.5 Monocytes (%) (Auto) 6.6 Eosinophils (%) (Auto) 0.8 Basophils (%) (Auto) 0.4 Neutrophils # (Auto) 8.2 Lymphocytes # (Auto) 1.1 Monocytes # (Auto) 0.7 Eosinophils # (Auto) 0.1 Basophils # (Auto) 0.0 CBC Comment DIFF FINAL Differential Comment Prothrombin Time 20.2 Prothromb Time International 1.8 Ratio Sodium Level 136 Potassium Level 3.1 Chloride Level 95 Carbon Dioxide Level 30.9 Anion Gap 10 Blood Urea Nitrogen 7 Creatinine 0.32 Estimat Glomerular Filtration 238 Rate Random Glucose 77 Calcium Level 7.8 Total Bilirubin 11.8 Aspartate Amino Transf 269 (AST/SGOT) Alanine Aminotransferase 108 (ALT/SGPT) Alkaline Phosphatase 128 Total Protein 5.5 Albumin 2.1 Tumor Marker Alpha Fetoprotein 6.4 Date/Time Procedure Status Source Growth 06/22/16 06:00 Stool Occult Blood (FLO) Received Stool Stool Pending 06/21/16 09:00 Urine Culture Worksheet Urine Clean Catch Pending Result Diagram: 06/22/16 0610 06/22/16 0610 Imaging Last Impressions Gall Bladder Ultrasound 06/21/16 0000 Signed Impressions: Service Date/Time: Tuesday, June 21, 2016 09:27 - CONCLUSION: 1. No definite gallstones, however tiny gallstones may be present with sludge in the gallbladder and findings suggestive of cholecystitis. 2. The liver is slightly echogenic which maybe due to fatty infiltration and or hepatocellular dysfunction. Dani Reynolds MD Assessment and Plan Assessment and Plan 35 year old female with history of alcohol abuse presenting with elevated liver enzymes, severe hyperbilirubinemia, coagulopathy and abdominal swelling concerning for alcoholic cirrhosis Problem List: (1) Liver failure Status: Acute Plan: Patient with no significant PMH presents with transaminitis, hyperbilirubinemia, jaundice, and abdominal fullness concerning for alcoholic cirrhosis given history. Meld score 24, confers 19.6% 3 month mortality Maddrey score 47 Plan: Lasix 40mg BID GI consult to work-up possible alcoholic cirrhosis, started on antiinflammatory trental SR, considered steroids and may at some point switch to steroids Give potassium 40mg x 1, monitor BMP Hemoccult CIWA, no alcohol withdrawal now Lipase wnl Hepatitis panel pending Trend CMP Vitamins Etoh level wnl US liver - showing gallstones, otherwise unremarkable Pain meds - hold NSAIDs, Tylenol given LFTs, give Dilaudid PRN. can give up to 2 grams tylenol per day if needed but will try to avoid (2) Alcohol abuse Status: Acute Plan: History of withdrawal characterized by autonomic symptoms, never has had seizures or hospitalization CIWA protocol Vitamins she is doing well so far (3) Fluids/Electrolytes/Nutrition/Prophylaxis Status: Acute Plan: Fluids: Hold IVF given ascites, fluid restrict to 2 L daily as it is very hot in [place] Electrolytes: Monitor and replete as needed Nutrition: Clear liquid for now, fluid restrict DVT Prophylaxis: bilateral SCDs GI Prophylaxis: PPI Physician Certification 2 Midnight Certification Type: Admission for Inpatient Services Order for Inpatient Services The services are ordered in accordance with Medicare regulations or non- Medicare payer requirements, as applicable. In the case of services not specified as inpatient-only, they are appropriately provided as inpatient services in accordance with the 2-midnight benchmark. Estimated LOS (days): 3 3 days is the estimated time the patient will need to remain in the hospital, assuming treatment plan goals are met and no additional complications. Post-Hospital Plan: Home Problem Qualifiers (1) Liver failure: Qualified Code: K72.00 - Acute liver failure without hepatic coma Mary Wesley MD Jun 22, 2016 09:34
[2016-06-22] MEDS: MULTIVITAMIN TAB PO SCH (10:21)
[2016-06-22] MEDS: FOLIC ACID 1 MG TAB PO SCH (10:22)
[2016-06-22] MEDS: THIAMINE HCL 100 MG TAB PO SCH (10:22)
[2016-06-22] MEDS: FUROSEMIDE 40 MG/4 ML VIAL IV PUSH SCH (10:23)
[2016-06-22] MEDS: SODIUM CHLORIDE 0.9% FLUSH 10 ML FLUSH IV FLUSH SCH ×2 (10:23→20:33)
[2016-06-22] MEDS: PANTOPRAZOLE SODIUM 40 MG VIAL IV PUSH SCH ×2 (10:23→20:33)
[2016-06-22] MEDS ORDERED: cefTRIAXone INJ 1,000 MG in SODIUM CHLORIDE 0.9% INJ 100 ML IV SCH (11:00)
--- NOTE | 2016-06-22 18:38 | HHI.GIFU ---
Subjective Remarks Sitting up in bed. States she is feeling much better today and is hoping to go home tomorrow. No n/v. No abdominal pain. Tolerating diet. (Isatu Hardin) Objective Vitals I&O Vital Signs Date Time Temp Pulse Resp B/P Pulse Ox O2 Delivery O2 Flow Rate FiO2 06/22/16 16:00 98.3 106 16 96/50 92 06/22/16 12:00 98.7 107 16 98/55 97 06/22/16 09:30 Room Air 06/22/16 08:00 98.9 104 16 96/55 4 06/22/16 04:00 98.1 107 18 102/54 90 06/22/16 04:00 98.1 107 18 102/54 90 06/22/16 00:00 98.3 110 18 94/52 93 06/21/16 20:00 Room Air 06/21/16 19:53 98.8 109 18 96/58 97 06/21/16 18:35 88/55 I/O 06/21/16 06/21/16 06/21/16 06/22/16 06/22/16 06/22/16 07:00 15:00 23:00 07:00 15:00 23:00 Intake Total 480 ml 942 ml Balance 480 ml 942 ml Intake Oral 480 ml 840 ml IV Total 102 ml # Voids 4 8 # Bowel Movements 2 Laboratory Laboratory Tests Test 06/21/16 06/22/16 06/22/16 20:25 06:10 15:35 Lactic Acid Level 1.3 White Blood Count 10.1 Red Blood Count 1.75 Hemoglobin 8.7 8.5 Hematocrit 26.0 Mean Corpuscular Volume 148.4 Mean Corpuscular Hemoglobin 49.7 Mean Corpuscular Hemoglobin 33.5 Concent Red Cell Distribution Width 22.3 Platelet Count 253 Mean Platelet Volume 8.4 Neutrophils (%) (Auto) 81.7 Lymphocytes (%) (Auto) 10.5 Monocytes (%) (Auto) 6.6 Eosinophils (%) (Auto) 0.8 Basophils (%) (Auto) 0.4 Neutrophils # (Auto) 8.2 Lymphocytes # (Auto) 1.1 Monocytes # (Auto) 0.7 Eosinophils # (Auto) 0.1 Basophils # (Auto) 0.0 CBC Comment DIFF FINAL Differential Comment Prothrombin Time 20.2 Prothromb Time International 1.8 Ratio Sodium Level 136 Potassium Level 3.1 Chloride Level 95 Carbon Dioxide Level 30.9 Anion Gap 10 Blood Urea Nitrogen 7 Creatinine 0.32 Estimat Glomerular Filtration 238 Rate Random Glucose 77 Calcium Level 7.8 Total Bilirubin 11.8 Aspartate Amino Transf 269 (AST/SGOT) Alanine Aminotransferase 108 (ALT/SGPT) Alkaline Phosphatase 128 Total Protein 5.5 Albumin 2.1 Tumor Marker Alpha Fetoprotein 6.4 Date/Time Procedure Status Source Growth 06/22/16 06:00 Stool Occult Blood (FLO) - Final Complete Stool Stool HEMOCCULT NEGATIVE 06/21/16 09:00 Urine Culture - Preliminary Resulted Urine Clean Catch Gram Negative Dick Imaging Last Impressions Gall Bladder Ultrasound 06/21/16 0000 Signed Impressions: Service Date/Time: Tuesday, June 21, 2016 09:27 - CONCLUSION: 1. No definite gallstones, however tiny gallstones may be present with sludge in the gallbladder and findings suggestive of cholecystitis. 2. The liver is slightly echogenic which maybe due to fatty infiltration and or hepatocellular dysfunction. Dani Reynolds MD Physical Exam HEENT: Normocephalic; atraumatic; + jaundice. CHEST: CTA CARDIAC: Regular, tachycardia ABDOMEN: Soft, nondistended, nontender, hepatosplenomegaly; bowel sounds are present in all four quadrants. Ascites EXTREMITIES: BLE edema. 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 (Isatu Hardin) Assessment and Plan Plan ASSESSMENT: - Acute hepatitis/Elevated LFTs, likely alcoholic hepatitis. No hx of known liver disease, hepatitis in self or family members. She does have a long hx of ETOH abuse, stating that she was a heavy drinker, drinking a "big bottle of liquor every 3-4 days" but states she cut this back < than one year ago and now drinks 4 shots at a time, a few times a week. She last had alcohol on Sunday, when she had 4 shots. Gall Bladder Ultrasound (06/21/16)-----> 1. No definite gallstones, however tiny gallstones may be present with sludge in the gallbladder and findings suggestive of cholecystitis. 2. The liver is slightly echogenic which maybe due to fatty infiltration and or hepatocellular dysfunction. She has several tattoo's, but all over a year ago at [employer]. She denies any new sexual partners. She does eat quite a bit of shellfish. T. Bili 11.8, AST 269, ALT 108, Alk Phosph 128. DF is 47.440, but she appears to have UTI and therefore we will start Pentoxifylline in lieu of steroids. She is actually feeling much better and hoping to go home tomorrow. Will recheck labs in am. D/W patient that she will need complete ETOH cessation and she is agreeable. Also discussed that if she is able to be discharged tomorrow, she will need fu in the office. She verbalizes understanding. Will recheck labs in am and see how she is doing in am. Need to make sure that her LFTs continue to improve, her hh does not drop further, and that her coagulopathy starts to improve. Hepatitis panel negative, Iron Saturation 90.2%- Hfe gene pending, AFP 6.4, JIAN, ASMA, AMA pending. Ceruloplasmin, Alpha 1 antitrypsin pending. - Elevated Iron Saturation at 90.2%, Hfe gene pending to r/o hemochromatosis. - Ascites. New onset, 2 weeks ago. Lasix. Improved. - Anemia. Mild, HH 8.7/26.0. - Abdominal pain. Has diffuse abdominal pain, but worse in [place]. Lipase 229. Likely related to her hepatitis and ascites. - Coagulopathy. Plt okay, but PT 19.4, INR 1.7. - MCV 148.4, check folate, b12 - Abn. UTI. Had one dose of ceftrixone. Will defer to primary - Tachycardic, elevated lactic acid. Per primary. - Hyponatremia, Hypokalemia, Hypocalcemia per primary. PLAN: - 2 gram sodium diet - Cont. Lasix - Cont Protonix - Cont. Pentoxifylline - Await JIAN, ASMA, AMA - Await Ceruloplasmin, Alpha 1 Antitrypsin - Hfe gene - B12, Folate level - CBC, PT/INR, CMP in am - Complete ETOH Cessation, d/w patient - Supportive care - Further recommendations to follow based on results of above - Pt seen and examined by Dr. Clay and myself and this note is written on his behalf (Isatu Hardin) Physician Comments Seen and examined Agree with above Continue with current supportive care Monitor labs (Guero Clay MD) Isatu Hardin Jun 22, 2016 18:38 Guero Clay MD Jun 22, 2016 22:47
[2016-06-23 04:05] VITALS: BP 93/53; PULSE 100; RESP 16; TEMP 98.5; O2SAT 94
[2016-06-23] MEDS: PENTOXIFYLLINE 400 MG CONTROLLED RELEASE TAB PO SCH ×2 (05:28→13:40)
[2016-06-23 07:19] LABS: BASOPHIL # 0.1 TH/MM3 (0-0.2); EOSINOPHIL # 0.1 TH/MM3 (0-0.4); EOSINOPHIL % 0.9 % (0.0-4.0); HEMATOCRIT 25.3 % (35.0-46.0); HEMO FLAGS DIFF FINAL; LYMPH % 10.6 % (9.0-44.0); LYMPHOCYTE # 1.1 TH/MM3 (1.0-4.8); MEAN CELL VOLUME 147.3 FL (80.0-100.0); MEAN CORPUSCULAR HEMOGLOBIN 49.3 PG (27.0-34.0); MEAN CORPUSCULAR HGB CONC 33.5 % (32.0-36.0); MONO % 7.2 % (0.0-8.0); NEUT % 80.3 % (16.0-70.0); PLATELET COUNT 268 TH/MM3 (150-450); RED BLOOD COUNT 1.72 MIL/MM3 (4.00-5.30); RED CELL DISTRIBUTION WIDTH 22.1 % (11.6-17.2)
[2016-06-23 07:23] LABS: INTERNATIONAL NORMALIZED RATIO 1.6 RATIO; PROTHROMBIN TIME - PATIENT 18.2 SEC (9.8-11.6)
[2016-06-23 07:54] LABS: ALT (GPT) 91 U/L (10-53); ANION GAP 9 MEQ/L (5-15); AST (GOT) 228 U/L (15-37); BLOOD UREA NITROGEN 6 MG/DL (7-18); CHLORIDE 96 MEQ/L (98-107); GLOMERULAR FILTRATION RATE 302 ML/MIN (>89); POTASSIUM 3.4 MEQ/L (3.5-5.1); SODIUM (NA) 135 MEQ/L (136-145)
[2016-06-23 08:00] VITALS: BP 96/52; PULSE 105; RESP 18; TEMP 98.4; O2SAT 95
[2016-06-23 08:03] LABS: ALKALINE PHOSPHATASE 112 U/L (45-117)
[2016-06-23] MEDS: FUROSEMIDE 40 MG/4 ML VIAL IV PUSH SCH (09:00)
[2016-06-23] MEDS ORDERED: CALCIUM CARBONATE 1.25 GM (CA 500 MG) TAB PO SCH (09:00)
[2016-06-23] MEDS ORDERED: POTASSIUM CHLORIDE 10 MEQ CONTROLLED RELEASE TAB PO SCH (09:00)
[2016-06-23] MEDS: PANTOPRAZOLE SODIUM 40 MG VIAL IV PUSH SCH (09:09)
[2016-06-23] MEDS: SODIUM CHLORIDE 0.9% FLUSH 10 ML FLUSH IV FLUSH SCH (09:10)
[2016-06-23] MEDS: THIAMINE HCL 100 MG TAB PO SCH (09:10)
[2016-06-23] MEDS: MULTIVITAMIN TAB PO SCH (09:10)
[2016-06-23] MEDS: FOLIC ACID 1 MG TAB PO SCH (09:10)
--- NOTE | 2016-06-23 09:27 | HHI.FPPN ---
Subjective Remarks Ms Cuba reports feeling very well today. All her abdominal pain is gone. She has a much reduced size to her abdomen and it is soft instead of firm. She also has legs that are not edematous. She knows that alcohol will make her worse and that it can even cause complete liver failure or if she goes back to drinking. She states she will not drink alcohol at all anymore. She wishes to go home today if at all possible and states she will be happy to follow up as an outpt for her lab results. She has no other complaints. her labs and appearance of jaundice are both better as well. Objective Vitals Vital Signs Date Time Temp Pulse Resp B/P Pulse Ox O2 Delivery O2 Flow Rate FiO2 06/23/16 08:00 98.4 105 18 96/52 95 06/23/16 04:05 98.5 100 16 93/53 94 06/22/16 23:05 98.2 106 16 93/56 92 06/22/16 21:05 98.1 109 16 96/55 94 06/22/16 20:15 Room Air 06/22/16 16:00 98.3 106 16 96/50 92 06/22/16 12:00 98.7 107 16 98/55 97 06/22/16 09:30 Room Air I/O 06/22/16 06/22/16 06/22/16 06/23/16 06/23/16 06/23/16 07:00 15:00 23:00 07:00 15:00 23:00 Intake Total 480 ml 942 ml 480 ml 120 ml Balance 480 ml 942 ml 480 ml 120 ml Intake Oral 480 ml 840 ml 480 ml 120 ml IV Total 102 ml # Voids 4 8 4 3 # Bowel Movements 2 1 0 Result Diagram: 06/23/16 0640 06/23/16 0640 Objective Remarks GENERAL: Patient is a well-nourished female who appears older than stated age, noticeably jaundiced in her eyes and face especially evident but in no apparent distress. Improved color to skin and eyes "less yellow" SKIN: Warm and dry. Skin is notable for "mini" spider angiomata across the upper chest and arms. HEAD: Atraumatic. Normocephalic. EYES: PERRLA. Prominent scleral icterus. No injection or drainage. ENT: No nasal bleeding or discharge. Mucous membranes pink and moist. Normal dentition. NECK: Trachea midline. No JVD. CARDIOVASCULAR: Regular rate and rhythm. No murmurs. RESPIRATORY: No accessory muscle use. Clear to auscultation. Breath sounds equal bilaterally. GASTROINTESTINAL: Abdomen is notably distended slightly less so today. It is soft and tender to deep palpation across the entire upper half. Hepatic margins palpable today with an enlarged liver palpable beyond the margin of the ribs and extending [facility] to pelvis. Positive fluid wave initially but not now. MUSCULOSKELETAL: Extremities without clubbing, cyanosis, or edema. No obvious deformities. 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 Motor grossly within normal limits. Five out of 5 muscle strength in the arms and legs. Normal speech. No asterixis. PSYCHIATRIC: Appropriate mood and affect; insight and judgment normal. Urinary Catheter: No Vascular Central Line Catheter: No A/P Assessment and Plan 35 year old female with history of alcohol abuse presenting with elevated liver enzymes, severe hyperbilirubinemia, coagulopathy and abdominal swelling concerning for alcoholic cirrhosis She keeps improving and wishes to go home today. Problem List: (1) Liver failure Status: Acute Plan: Patient with no significant PMH presents with transaminitis, hyperbilirubinemia, jaundice, and abdominal fullness concerning for alcoholic cirrhosis given history. Meld score 24, confers 19.6% 3 month mortality Maddrey score 47 Plan: Lasix 40mg BID, holding today as she is diuresed plus her BPs are low GI consult to work-up possible alcoholic cirrhosis, started on antiinflammatory trental SR, considered steroids and may at some point switch to steroids Give potassium 40mg x 1, monitor BMP, check magnesium as well Hemoccult negative CIWA, no alcohol withdrawal now Lipase wnl Hepatitis panel pending Trend CMP Vitamins Etoh level wnl US liver - showing gallstones, otherwise unremarkable Pain meds - hold NSAIDs, Tylenol given LFTs, give Dilaudid PRN. can give up to 2 grams tylenol per day if needed but will try to avoid (2) Alcohol abuse Status: Acute Plan: History of withdrawal characterized by autonomic symptoms, never has had seizures or hospitalization [facility] protocol Vitamins she is doing well so far (3) Fluids/Electrolytes/Nutrition/Prophylaxis Status: Acute Plan: Fluids: Hold IVF given ascites, fluid restrict to 2 L daily as it is very hot in [place] Electrolytes: Monitor and replete as needed Nutrition: Clear liquid for now, fluid restrict DVT Prophylaxis: bilateral SCDs GI Prophylaxis: PPI (4) Anemia Status: Acute Plan: stable Hb but low. Heme negative. suspect multifactorial as she can have some bone marrow suppression with alcohol use, can have some vitamin/Fe deficiency with poor diet. She reports she will abstain from alcohol and her anemia can be worked up further as an outpt when she will hopefully be eating better and no alcohol. She does not need a transfusion or acute treatment right now Problem Qualifiers (1) Liver failure: Qualified Code: K72.00 - Acute liver failure without hepatic coma (2) Anemia: Qualified Code: D63.8 - Anemia in other chronic diseases classified elsewhere Mary Wesley MD Jun 23, 2016 09:27
[2016-06-23] MEDS ORDERED: PENT400T PO (09:40)
[2016-06-23] MEDS ORDERED: NITR100C4 PO (09:44)
--- NOTE | 2016-06-23 09:46 | HHI.DCPOC ---
Discharge Care Plan Diagnosis: (1) Cirrhosis, alcoholic (2) Liver failure (3) Alcohol abuse Goals to Promote Your Health * To prevent worsening of your condition and complications * To maintain your health at the optimal level Directions to Meet Your Goals Take your medications as prescribed Follow your dietary instruction Follow activity as directed Keep your appointments as scheduled Take your immunizations and boosters as scheduled If your symptoms worsen call your PCP, if no PCP go to Urgent Care Center or Emergency Room Smoking is Dangerous to Your Health. Avoid second hand smoke Call the 24-hour hour crisis hotline for domestic abuse at Harrison Pineda MD R2 Jun 23, 2016 09:46
--- NOTE | 2016-06-23 10:45 | HHI.DS ---
Discharge Summary Admission Date Jun 21, 2016 at 10:57 Discharge Date: Jun 23, 2016 Admitting Diagnosis liver failure (1) Liver failure Diagnosis: Principal Plan: Patient with no significant PMH presents with transaminitis, hyperbilirubinemia, jaundice, and abdominal fullness concerning for alcoholic cirrhosis given history. Meld score 24, confers 19.6% 3 month mortality Maddrey score 47 Plan: Lasix 40mg BID GI consult to work-up possible alcoholic cirrhosis, started on antiinflammatory trental SR, considered steroids and may at some point switch to steroids Give potassium 40mg x 1, monitor BMP Hemoccult CIWA, no alcohol withdrawal now Lipase wnl Hepatitis panel pending Trend CMP Vitamins Etoh level wnl US liver - showing gallstones, otherwise unremarkable Pain meds - hold NSAIDs, Tylenol given LFTs, give Dilaudid PRN. can give up to 2 grams tylenol per day if needed but will try to avoid (2) Alcohol abuse Diagnosis: Principal Plan: History of withdrawal characterized by autonomic symptoms, never has had seizures or hospitalization CIWA protocol Vitamins she is doing well so far (3) Fluids/Electrolytes/Nutrition/Prophylaxis Diagnosis: Secondary Plan: Fluids: Hold IVF given ascites, fluid restrict to 2 L daily as it is very hot in [place] Electrolytes: Monitor and replete as needed Nutrition: Clear liquid for now, fluid restrict DVT Prophylaxis: bilateral SCDs GI Prophylaxis: PPI [facility] Gastroenterology Brief History Ms Cuba is a 35 year old female with no significant PMH who presented to ED after two weeks of progressively worsening abdominal and LE swelling. The swelling began in bilateral feet two weeks ago, then stomach swelling notable a day or so later. Over time it began to look like she was and that her legs were swelling too. The symptoms have all been bilateral. Now, she is unable to move without difficulty and it is difficult to sleep due to discomfort. Of note, patient has a history of alcoholism, stating she has not regularly drank for years but has been recently drinking up to 4 shots of vodka per day, last reported use Sunday. She states in the past she has been able to consume a whole bottle of vodka a day. She took an OTC water pill three times about a week ago, didn't do anything. No recent illnesses. She endorses shortness of breath with bending over, walking (20-30 feet). Endorses palpitations once. No chest pain, headache, nausea or vomiting, abdominal pain (just tightness). No voiding difficulty. No blood noted in the stool or urine, no melena. She gets full quickly over the last two weeks. Never had a GI workup. PCP: None. No periods, had Mirena taken out 3 years ago, but not on anything now, LMP 6 months ago. Not sexually active now, last activity 3 months ago, 1 partner male in last 6 months. CBC/BMP: 06/23/16 0640 06/23/16 0640 Significant Findings Laboratory Tests Test 06/21/16 06/22/16 06/22/16 06/23/16 09:00 06:10 15:35 06:40 Prothrombin Time 19.4 SEC 20.2 SEC 18.2 SEC (9.8-11.6) (9.8-11.6) (9.8-11.6) Sodium Level 133 MEQ/L 135 MEQ/L (136-145) (136-145) Potassium Level 3.1 MEQ/L 3.1 MEQ/L 3.4 MEQ/L (3.5-5.1) (3.5-5.1) (3.5-5.1) Chloride Level 91 MEQ/L 95 MEQ/L 96 MEQ/L (98-107) (98-107) (98-107) Blood Urea Nitrogen 6 MG/DL (7-18) 6 MG/DL (7-18) Creatinine 0.39 MG/DL 0.32 MG/DL 0.26 MG/DL (0.50-1.00) (0.50-1.00) (0.50-1.00) Lactic Acid Level 2.1 mmol/L (0.4-2.0) Calcium Level 8.1 MG/DL 7.8 MG/DL 8.0 MG/DL (8.5-10.1) (8.5-10.1) (8.5-10.1) Iron Level 173 MCG/DL (50-170) Total Iron Binding Capacity 192 MCG/DL (250-450) Percent Iron Saturation 90.2 % (20-50) Ferritin 1077 NG/ML (8-252) Total Bilirubin 13.4 MG/DL 11.8 MG/DL 9.0 MG/DL (0.2-1.0) (0.2-1.0) (0.2-1.0) Direct Bilirubin 10.1 MG/DL (0.0-0.2) Indirect Bilirubin 3.3 MG/DL (0.0-0.8) Aspartate Amino Transf 372 U/L (15-37) 269 U/L (15-37) 228 U/L (15-37) (AST/SGOT) Alanine Aminotransferase 137 U/L (10-53) 108 U/L (10-53) 91 U/L (10-53) (ALT/SGPT) Alkaline Phosphatase 162 U/L 128 U/L (45-117) (45-117) Lactate Dehydrogenase 417 U/L (84-246) Total Protein 6.1 GM/DL 5.5 GM/DL 5.3 GM/DL (6.4-8.2) (6.4-8.2) (6.4-8.2) Albumin 2.4 GM/DL 2.1 GM/DL 2.0 GM/DL (3.4-5.0) (3.4-5.0) (3.4-5.0) Acetaminophen Level LESS THAN 2.0 MCG/ML (10.0-30.0) Red Blood Count 1.95 MIL/MM3 1.75 MIL/MM3 1.72 MIL/MM3 (4.00-5.30) (4.00-5.30) (4.00-5.30) Hemoglobin 10.0 GM/DL 8.7 GM/DL 8.5 GM/DL 8.5 GM/DL (11.6-15.3) (11.6-15.3) (11.6-15.3) (11.6-15.3) Hematocrit 28.7 % 26.0 % 25.3 % (35.0-46.0) (35.0-46.0) (35.0-46.0) Mean Corpuscular Volume 146.8 FL 148.4 FL 147.3 FL (80.0-100.0) (80.0-100.0) (80.0-100.0) Mean Corpuscular Hemoglobin 51.3 PG 49.7 PG 49.3 PG (27.0-34.0) (27.0-34.0) (27.0-34.0) Red Cell Distribution Width 24.2 % 22.3 % 22.1 % (11.6-17.2) (11.6-17.2) (11.6-17.2) Neutrophils % (Manual) 72 % (16-70) Monocytes % 10 % (0-8) Neutrophils # (Manual) 8.5 TH/MM3 (1.8-7.7) Target Cells 2+ (NORMAL) Acanthocytes OCC (NORMAL) Keratocytes OCC (NORMAL) Urine Color DARK-BROWN (YELLW/STRAW) Urine Turbidity CLOUDY (CLEAR) Urine Protein 30 mg/dL (NEG-TRACE) Urine Ketones TRACE mg/dL (NEG) Urine Occult Blood TRACE (NEG) Urine Nitrite POS (NEG) Urine Bilirubin LARGE (NEG) Urine Urobilinogen GREATER THAN 12.0 MG/DL (LESS THAN 2.0) Urine Leukocyte Esterase LARGE (NEG) Urine RBC 8 /hpf (0-3) Urine WBC 106 /hpf (0-5) Urine WBC Clumps MANY (NONE) Urine Bacteria MANY /hpf (NONE) Urine Mucus MANY /lpf (OCC) Neutrophils (%) (Auto) 81.7 % 80.3 % (16.0-70.0) (16.0-70.0) Neutrophils # (Auto) 8.2 TH/MM3 8.0 TH/MM3 (1.8-7.7) (1.8-7.7) Folate 2.8 NG/ML (3.1-17.5) Imaging Last Impressions Gall Bladder Ultrasound 06/21/16 0000 Signed Impressions: Service Date/Time: Tuesday, June 21, 2016 09:27 - CONCLUSION: 1. No definite gallstones, however tiny gallstones may be present with sludge in the gallbladder and findings suggestive of cholecystitis. 2. The liver is slightly echogenic which maybe due to fatty infiltration and or hepatocellular dysfunction. Dani Reynolds MD Hospital Course Patient was admitted on 06/21/16 for liver failure. She had worsening ascites and lower extremity swelling. Her ascites was causing severe abdominal pain. Patient was placed on salt restriction and Lasix for diuresing and quickly improved. He is really emphasized that she needs to quit all alcohol intake as her liver is damaged and failing. Informed her that while in the hospital not drinking alcohol her liver enzymes continued to improve, anticipate continued improvement if she abstains from all alcohol intake. Patient was also found to have a urinary tract infection while the hospital placed on antibiotics by mouth for further treatment. Pt Condition on Discharge: Stable Discharge Disposition: Discharge Home Discharge Instructions DIET: Follow Instructions for: Low Sodium Diet Activities you can perform: Regular-No Restrictions Follow up Referrals: Gastroenterology - 2 Weeks with Guero Clay MD PCP Follow-up - 1 Week New Orders: CBC WITH DIFF - 1 Week HEPATIC FUNCTION ADLER - 1 Week PROTHROMBIN TIME (PT) - 1 Week New Medications: Nitrofurantoin Monohydrate Macrocrystals (Nitrofurantoin Monohydrate Macrocrystals) 100 Mg Cap 100 MG PO BID Infection #10 Ref 0 CAP Pentoxifylline ER (Pentoxifylline ER) 400 Mg Tab 400 MG PO Q8HR #90 TAB Harrison Pineda MD R2 Jun 23, 2016 10:45
[2016-06-23 10:56] LABS: MAGNESIUM 1.7 MG/DL (1.5-2.5)
[2016-06-23] MEDS ORDERED: NITROFURANTOIN MONOHYD MACROCR 100 MG CAP PO SCH (11:00)
[2016-06-23 12:00] VITALS: BP 102/61; PULSE 106; RESP 18; TEMP 98.2; O2SAT 96
[2016-06-23 16:00] VITALS: BP 98/55; PULSE 105; RESP 18; TEMP 98.3; O2SAT 99
[2016-06-23] MEDS ORDERED: FUROSEMIDE 40 MG/4 ML VIAL IV PUSH SCH (21:00)
[2016-06-25 23:52] LABS: MITOCHONDRIAL ABS LESS THAN 20.0 U (())
[2016-06-27 19:44] LABS: HEREDITARY HEMOCHROM SPECIMEN WB Whole Blood (())
== END 2016-06-23 16:15 | disposition home or self-care (01) | DRG 442 ==
LOC: NEPC 08:16 → NEDA 10:57 → N04A 13:53
PROVIDERS: ADMIT Family Medicine; ATTEND Family Medicine
DX: K72.00 Acute and subacute hepatic failure without coma (principal); D68.9 Coagulation defect, unspecified; K74.60 Unspecified cirrhosis of liver; E87.1 Hypo-osmolality and hyponatremia; N39.0 Urinary tract infection, site not specified; K70.11 Alcoholic hepatitis with ascites; D53.9 Nutritional anemia, unspecified; E83.51 Hypocalcemia; E87.6 Hypokalemia; F10.10 Alcohol abuse, uncomplicated; K21.9 Gastro-esophageal reflux disease without esophagitis; K80.20 Calculus of gallbladder without cholecystitis without obstruction; Z72.0 Tobacco use; Z86.73 Personal history of transient ischemic attack (TIA), and cerebral infarction without residual deficits; B96.20 Unspecified Escherichia coli [E. coli] as the cause of diseases classified elsewhere
CPT/HCPCS: 76705; 80053; 80074; 80307; 81001; 81256; 82103; 82105; 82248; 82272; 82390; 82607; 82728; 82746; 83010; 83520; 83540; 83550; 83605; 83615; 83690; 83735; 84702; 84703; 85007; 85018; 85025; 85027; 85060; 85610; 85730; 86038; 86256; 87077; 87086; 87186; 93005; C9113; J0696; J1170; J1940

== ENCOUNTER 2017-08-03 13:49 | Emergency (ER) | payer MEDICAID ==
[~2017-08-03] VITALS: Ht 167.6 cm; Wt 74.1 kg
[~2017-08-03 13:49] MED LIST changes: -BENZ100 PO; -MAGICPED SWISH-SPIT; +NITR100C4 PO; +PENT400T PO; -PRED20 PO
[2017-08-03 13:53] VITALS: BP 119/79; PULSE 91; RESP 16; TEMP 97.9; O2SAT 95
[2017-08-03] MEDS ORDERED: ORPHENADRINE INJ 60 MG/2 ML AMP IM ONE (14:15)
[2017-08-03] MEDS ORDERED: KETOROLAC TROMETHAMINE 60 MG/2 ML (IM) VIAL IM ONE (14:15)
[2017-08-03] MEDS ORDERED: MEDR4PAK PO (14:16)
[2017-08-03] MEDS ORDERED: IBUP1TAB7 PO (14:16)
[2017-08-03] MEDS ORDERED: ROBA500T PO (14:16)
--- NOTE | 2017-08-03 14:16 | PD ---
HPI Chief Complaint: Musculoskeletal Complaint Time Seen by Provider: 14:03 Travel History International Travel<30 days: No Contact w/Intl Traveler<30days: No Traveled to known affect area: No History of Present Illness HPI 36-year-old female presents to emergency department with complaint of right lower back pain that radiates down her right leg that started yesterday. Denies new or recent injury. Said she had similar pain a few months ago and saw her primary care, was told that she had sciatica, and he gave her steroids and gabapentin, which did not help. Denies encopresis, incontinence, saddle anesthesias. Denies IV drug use or cancer. Denies abdominal pain, dysuria, change in stool. Denies fever, vomiting. Denies paresthesias, loss of sensation, decreased range of motion, decreased strength to bilateral lower extremities. Rates pain 8/10. Describes it as a stabbing sensation. Worse with movement. Better at rest. Has not taken any medication or try any treatments to alleviate her symptoms currently. Allergies to Ortho Tri-Cyclen. Has primary care provider. Has no other medical complaints. No other modifying factors or associated signs and symptoms. PFSH Past Medical History Anemia: Yes Cancer: No Cardiovascular Problems: No Cerebrovascular Accident: Yes (when she was 18 "mini stroke") Endocrine: No Genitourinary: No Immune Disorder: No Musculoskeletal: No Neurologic: No Psychiatric: No Reproductive: No Respiratory: No Immunizations Current: Yes ?: Not Past Surgical History Abdominal Surgery: No Social History Alcohol Use: Yes (occasional) Tobacco Use: Yes Substance Use: Yes Allergies-Medications (Allergen,Severity, Reaction): Uncoded Allergies: ORTHO TRI-CYCLEN (Allergy, Severe, SYNCOPE, 01/07/15) PT STATES "PASSED OUT AND HAD MINI STROKE". Reported Meds & Prescriptions Reported Meds & Active Scripts Active Medrol Dosepak (Methylprednisolone) 4 Mg Dspk 4 Mg PO DIRECTED Per Pharmacist direction Robaxin (Methocarbamol) 500 Mg Tab 500 Mg PO QID PRN Ibuprofen 800 Mg Tab 800 Mg PO Q6HR PRN Review of Systems Except as stated in HPI: all other systems reviewed are Neg Physical Exam Narrative GENERAL: Well-nourished, well-developed female patient, in no acute distress; afebrile, nontoxic-appearing SKIN: Warm and dry. HEAD: Atraumatic. Normocephalic. EYES: Pupils equal and round. No scleral icterus. No injection or drainage. ENT: Mucosa pink and moist. Airway patent. NECK: Trachea midline. CARDIOVASCULAR: Regular rate. RESPIRATORY: No accessory muscle use. GASTROINTESTINAL: Flat. MUSCULOSKELETAL: Bilateral lower extremities supple and non-tense with 2+ pedal pulses and sensory intact; with full range of motion and 5/5 strength. 2 + DTRs bilaterally. Active dorsiflexion and extension of bilateral feet. Right straight leg raise is positive for low back pain. Ambulatory in room with guarded gait to the right lower extremity. Sitting up in bed at 90. No obvious deformities. No clubbing. No cyanosis. No edema. BACK: No midline point tenderness on palpation of the lumbar spine. Tenderness on palpation of right lumbar iliosacral/buttocks area. No obvious deformities. 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 Oriented 3. No obvious cranial nerve deficits. Motor grossly within normal limits. Normal speech. Moves all extremities. 5/5 strength to all extremities. Sensory intact. PSYCHIATRIC: Appropriate mood and affect; insight and judgment normal. Data Data Last Documented VS Vital Signs Date Time Temp Pulse Resp B/P (MAP) Pulse Ox O2 Delivery O2 Flow Rate FiO2 08/03/17 13:53 97.9 91 16 119/79 (92) 95 Orders Orders Ketorolac Inj (Toradol Inj) (08/03/17 14:15) Orphenadrine Inj (Norflex Inj) (08/03/17 14:15) Ed Discharge Order (08/03/17 14:13) [facility] Medical Decision Making Medical Screen Exam Complete: Yes Emergency Medical Condition: Yes Medical Record Reviewed: Yes Differential Diagnosis Acute exacerbation of chronic low back pain, sciatica, low back strain Narrative Course 36-year-old female physical exam and HPI consistent with right-sided low back pain with sciatica. Denies encopresis, incontinence, saddle anesthesias. Denies IV drug use, cancer. Denies any recent injury. No midline tenderness on palpation of the lumbar spine. Neuro exam is unremarkable. Toradol, Norflex administered in the ER. Robaxin, ibuprofen, Medrol Dosepak prescribed for home. Instructed patient to follow up with primary care provider. Patient verbalizes understanding and agreement with treatment plan. Patient is medically cleared and stable for discharge. Discussed reasons to return to the emergency department. Patient agrees with treatment plan. The patients vital signs are stable and the patient is stable for outpatient follow-up and treatment. Patient discharged home, stable and in no acute distress. Diagnosis Primary Impression: Right-sided low back pain with sciatica Qualified Codes: M54.41 - Lumbago with sciatica, right side Referrals: Neurosurgeon Primary Care Physician Patient Instructions: Acute Low Back Pain (ED), General Instructions, Sciatica (ED) Departure Forms: Tests/Procedures, Work Release Enter return to work date: Aug 06, 2017 Additional Instructions: Tylenol or ibuprofen as directed and as needed for pain Robaxin as prescribed and as needed for muscle spasms Heating pad and/or ice to affected area to reduce pain Avoid aggravating activities; increase activity as tolerated Follow-up with primary care provider Return to emergency department immediately with worsening of symptoms Med/Other Pt SpecificInfo: Prescription(s) given Scripts Methylprednisolone Dosepak (Medrol Dosepak) 4 Mg Dspk 4 MG PO DIRECTED, #1 DSPK 0 Refills Per Pharmacist direction Prov: Olga Thompson 08/03/17 Methocarbamol (Robaxin) 500 Mg Tab 500 MG PO QID Y for MUSCLE SPASM, #30 TAB 0 Refills Prov: Olga Thompson 08/03/17 Ibuprofen (Ibuprofen) 800 Mg Tab 800 MG PO Q6HR Y for PAIN, #30 TAB 0 Refills Prov: Olga Thompson 08/03/17 Disposition: 01 DISCHARGE HOME Condition: Stable Olga Thompson Aug 03, 2017 14:16
== END 2017-08-03 14:30 | disposition home or self-care (01) ==
LOC: PHEFT 13:49
DX: M54.41 Lumbago with sciatica, right side (principal); Z86.73 Personal history of transient ischemic attack (TIA), and cerebral infarction without residual deficits; Z72.0 Tobacco use
CPT/HCPCS: 96372; 99283; J1885; J2360